=== PATIENT | male | born 1995 | race Caucasian/White ===

== ENCOUNTER 2017-11-29 11:13 | Emergency (ER) | payer BC ==
[2017-11-29] MEDS ORDERED: TETRACAINE HCL 0.5% OPH SOLN 2 ML OS ONE (11:53)
--- NOTE | 2017-11-29 11:53 | ER Document Report ---
ED Medical Screen (RME) - General Chief Complaint: Foreign Body in Eye Stated Complaint: EYE INJURY Time Seen by Provider: 11/29/17 11:53 Notes: fb to eye yesterday while working with granite TRAVEL OUTSIDE OF THE [place] IN LAST 30 DAYS: No - Related Data Allergies/Adverse Reactions: No Known Allergies Allergy (Unverified 11/29/17 11:15) Past Medical History - Social History Chew tobacco use (# tins/day): No Frequency of alcohol use: None Drug Abuse: None Renal/ Medical History: Denies: Hx Peritoneal Dialysis Physical Exam - Vital signs Vitals: Temp Pulse Resp BP Pulse Ox 97.6 F 83 18 134/81 H 99 11/29/17 11:41 11/29/17 11:41 11/29/17 11:41 11/29/17 11:41 11/29/17 11:41 Course - Vital Signs Vital signs: Temp Pulse Resp BP Pulse Ox 97.6 F 83 18 134/81 H 99 11/29/17 11:41 11/29/17 11:41 11/29/17 11:41 11/29/17 11:41 11/29/17 11:41
[2017-11-29] MEDS ORDERED: CIPROFLOXACIN-HC OTIC SUSP 10 ML AS ONE (13:22)
--- NOTE | 2017-11-29 13:26 | ER Document Report ---
ED General - General Chief Complaint: Foreign Body in Eye Stated Complaint: EYE INJURY Time Seen by Provider: 11/29/17 11:53 TRAVEL OUTSIDE OF THE [place] IN LAST 30 DAYS: No - HPI Patient complains to provider of: Left eye irritation Notes: Patient coming in for evaluation of left eye irritation. Patient states that he was cutting [place] when he felt something underneath his goggles into his left eye states he cleaned his eye out with flushes and also an air compressor however continue to have foreign body sensation last night woke up this morning with a red matted draining. Patient denies wearing contacts. Denies any fevers chills nausea vomiting diarrhea denies any other trauma. Denies any blurry vision or visual changes. Patient states any foreign body sensation slight pain. - Related Data Allergies/Adverse Reactions: No Known Allergies Allergy (Unverified 11/29/17 11:15) Past Medical History - Social History Smoking Status: Never Smoker Chew tobacco use (# tins/day): No Frequency of alcohol use: None Drug Abuse: None Family History: Reviewed & Not Pertinent Patient has suicidal ideation: No Patient has homicidal ideation: No Renal/ Medical History: Denies: Hx Peritoneal Dialysis Review of Systems - Review of Systems Constitutional: No symptoms reported EENT: Eye pain, Eye discharge Cardiovascular: No symptoms reported Respiratory: No symptoms reported Gastrointestinal: No symptoms reported Genitourinary: No symptoms reported Male Genitourinary: No symptoms reported Musculoskeletal: No symptoms reported Skin: No symptoms reported Hematologic/Lymphatic: No symptoms reported Neurological/Psychological: No symptoms reported -: Yes All other systems reviewed and negative Physical Exam - Vital signs Vitals: Temp Pulse Resp BP Pulse Ox 97.6 F 83 18 134/81 H 99 11/29/17 11:41 11/29/17 11:41 11/29/17 11:41 11/29/17 11:41 11/29/17 11:41 Interpretation: Normal - General General appearance: Appears well, Alert - HEENT Head: Normocephalic, Atraumatic Eyes: Normal Conjunctiva: Injected, Purulent discharge Cornea: Corneal abrasion Pupils: PERRL - Respiratory Respiratory status: No respiratory distress Chest status: Nontender Breath sounds: Normal Chest palpation: Normal - Cardiovascular Rhythm: Regular Heart sounds: Normal auscultation Murmur: No - Abdominal Inspection: Normal Distension: No distension Bowel sounds: Normal Tenderness: Nontender Organomegaly: No organomegaly - Back Back: Normal, Nontender - Extremities General upper extremity: Normal inspection, Nontender, Normal color, Normal ROM , Normal temperature General lower extremity: Normal inspection, Nontender, Normal color, Normal ROM , Normal temperature, Normal weight bearing. No: Maricruz's sign - Neurological Neuro grossly intact: Yes Cognition: Normal Orientation: AAOx4 Lauren Coma Scale Eye Opening: Spontaneous [place] Coma Scale Verbal: Oriented [place] Coma Scale Motor: Obeys Commands [place] Coma Scale Total: 15 Speech: Normal Motor strength normal: LUE, RUE, LLE, RLE Sensory: Normal - Psychological Associated symptoms: Normal affect, Normal mood - Skin Skin Temperature: Warm Skin Moisture: Dry Skin Color: Normal Course - Re-evaluation Re-evalutation: 11/29/17 15:27 Left thigh was examined with the Peña lamp with fluorescein. No foreign body was seen however there was a corneal abrasion at approximately the 3 o'clock position no signs of globe rupture. The lids were everted again showing no foreign bodies congestion injected with purulent discharge with serial flush. Patient was started on TobraDex drops as that the pharmacy refused to get me Cipro otic drops for the patient's eye patient encouraged follow-up with ophthalmology if symptoms continue in the next 2 3 days pain worsens. Patient states understanding. - Vital Signs Vital signs: Temp Pulse Resp BP Pulse Ox 98.6 F 79 18 130/74 H 99 11/29/17 13:32 11/29/17 13:32 11/29/17 13:32 11/29/17 13:32 11/29/17 13:32 Procedures - Eye Procedure Left Fluorescein applied: Left Eyes picture: 1 - Site of corneal abrasion small Discharge - Discharge Clinical Impression: Corneal abrasion Qualifiers: Encounter type: initial encounter Laterality: left Qualified Code(s): S05.02XA - Injury of conjunctiva and corneal abrasion without foreign body, left eye, initial encounter Condition: Good Disposition: HOME, SELF-CARE Instructions: Corneal Abrasion ([facility]), Oral Narcotic Medication ([facility]) Additional Instructions: Please use the eyedrops given to you here in ER 2 drops in the left eye every 4 hours for the next 10 days. I would recommend following up with account executive key accounts or office machinery or equipment installer listed if symptoms do not improve in the next 3 days. Return to ER for any concerns. Prescriptions: Tramadol HCl [Ultram 50 mg Tablet] 50 mg PO ASDIR PRN #20 tablet PRN Reason: Forms: Parent Work Note, Return to Work Referrals: RUPINDER MYLES MD [ACTIVE STAFF] - Follow up as needed ARIS VANCE DO [ACTIVE STAFF] - Follow up as needed
[2017-11-29 13:37] VITALS: BP 130/74
[2017-11-29] MEDS ORDERED: TOBRAMYCIN SULFATE/DEXAMETH OPH SUSP 2.5 ML OS SCH (14:00)
== END 2017-11-29 14:16 | disposition home or self-care (01) ==
LOC: ER 11:13
DX: S05.02XA Injury of conjunctiva and corneal abrasion without foreign body, left eye, initial encounter (principal); W22.8XXA Striking against or struck by other objects, initial encounter; Y99.0 Civilian activity done for income or pay
CPT/HCPCS: 99283; J3490 ×2